=== PATIENT | male | born 1940 | race Caucasian/White ===

== ENCOUNTER → 2024-09-19 12:51 | Outpatient (REF) | payer MEDICARE, OTHER, SELFPAY ==
[2024-09-19 13:43] LABS: % Eosinophils 4.5 % (0-6); % Immature Granulocytes 0.2 % (0-0.5); % Monocytes 16.8 % (1.7-9.3); % Neutrophils 51.5 % (42.2-75.2); Absolute Basophils 0.1 10^3/uL (0-0.2); Absolute Eosinophils 0.2 10^3/uL (0-0.7); Absolute Lymphocytes 1.1 10^3/uL (1.2-3.4); Absolute Monocytes 0.7 10^3/uL (0.1-0.6); Absolute Neutrophils 2.3 10^3/uL (1.4-6.5); Hematocrit 41.1 % (39.0-52.0); Hemoglobin 13.2 g/dL (13.0-18.0); Mean Corp Hgb Conc. 32.1 g/dL (33.0-37.0); Mean Corpuscular Hgb 28.6 pg (27.0-31.0); Nucleated Red Blood Cells % 0 % (-); Platelet Count 208 10^3/uL (130-400); Red Blood Cell Count 4.62 10^6/uL (4.70-6.10); Red Cell Dist. Width 14.6 % (11.5-14.5); White Blood Cell Count 4.4 10^3/uL (4.8-10.8)
[2024-09-19 13:47] LABS: Erythrocyte Sed Rate 15 mm/hour (0-20)
== END ==
LOC: REG 12:51
PROVIDERS: ATTENDING PHYSICIAN Specialist; FAMILY PHYSICIAN Family Medicine
DX: M25.462 Effusion, left knee (principal)
CPT/HCPCS: 36415; 85025; 85652; 86140

== ENCOUNTER → 2024-09-22 09:10 | Outpatient (REF) | payer MEDICARE, OTHER, SELFPAY | LOC: RAD 09:10 | PROVIDERS: ATTENDING PHYSICIAN Specialist; FAMILY PHYSICIAN Family Medicine | DX: Z96.652 Presence of left artificial knee joint (principal) | CPT/HCPCS: 78315; A9503 ==

== ENCOUNTER 2024-10-27 08:20 | Inpatient (IN) | payer MEDICARE, OTHER, SELFPAY ==
[2024-10-06 13:41] VITALS: BMI 32.5
[2024-10-06 14:16] LABS: Hematocrit 40.6 % (39.0-52.0); Hemoglobin 13.2 g/dL (13.0-18.0); Mean Corp Hgb Conc. 32.5 g/dL (33.0-37.0); Platelet Count 141 10^3/uL (130-400); Red Blood Cell Count 4.72 10^6/uL (4.70-6.10); Red Cell Dist. Width 15.4 % (11.5-14.5); White Blood Cell Count 5.1 10^3/uL (4.8-10.8)
[2024-10-06 14:53] LABS: ALT (SGPT) 32 U/L (0-50); AST (SGOT) 29 U/L (17-59); Alkaline Phosphatase 91 U/L (38-126); Blood Urea Nitrogen 26 mg/dl (9-20); Calcium 8.7 mg/dl (8.4-10.2); Carbon Dioxide 25 mmol/L (22-30); Chloride 103 mmol/L (98-107); Estimated Creatinine Clearance 50 ml/min; Glucose 91 mg/dl (70-99); Potassium 3.8 mmol/L (3.5-5.1); Sodium 138 mmol/L (135-145); Total Bilirubin 1.5 mg/dl (0.2-1.3); Total Protein 6.4 g/dl (6.3-8.2); eGFR 50.49
[2024-10-07 08:31] LABS: Glycohemoglobin (HgbA1c) 5.1 % (4.0-5.6)
[2024-10-15 11:35] VITALS: BMI 32.5
--- NOTE | 2024-10-23 13:43 | W.PN.UPDATE ---
Update Note
Progress Note Update
Called patient for f/u:
--sebaceous cyst excised Sunday-no evidence of infection-Keflex d/c today.
--completed my recommendation/Rxs for gout flare which is now resolved.
[2024-10-27] VITALS (17 sets, daily range): BP systolic 112–131; BP diastolic 55–91; PULSE 58; O2SAT 100; BMI 32.5
[2024-10-27] MEDS: BACTROBAN NASAL 1 GRAM NASAL (08:51)
[2024-10-27] MEDS: TYLENOL 650 MG PO ×3 (08:52→19:43)
[2024-10-27] MEDS: CELEBREX 200 MG PO (08:52)
--- NOTE | 2024-10-27 08:58 | W.PN.UPDATE ---
Update Note
Progress Note Update
Mechanical failure-L TKA Revision Dr. Fragoso
DVT ppx ASA + SCD
.
Recent acute gouty flare right foot-s/p brief prednisone taper
with colchicine as well as low-dose allopurinol based on renal
function. Patient will be placed on Decadron post-op.
Recent sebaceous cyst left axillary region excised , possible
follicular in origin, s/p Keflex.
Patient has multiple malignancies including prostate cancer as
well as multiple myeloma and is being actively treated with Revlimid
which is a protein that regulates cell division, activates immune
cells, and alters cytokine and interleukin levels as an immunomodulator.
It is required for delaying progression of his multiple myeloma.
We will include cefadroxil prophylaxis for infection prevention
postoperatively.
[id number] by cath
AV block
--tele-statin,BB,ASA uninterrupted
ALE-intolerant to device-O2 prn hs
CKD 3-avoid nephrotoxic agents
PAST MEDICAL HISTORY:
1. Osteoarthritis status post bilateral total knee arthroplasty
2010.
2. Gout.
3. AV block.
4. Hypertension.
5. Hyperlipidemia.
6. CAD, nonobstructive by cath 2023 medically treated.
7. Prostate cancer greater than 10 years s/p robotic
prostatectomy.
8. Multiple myeloma 2020, active Revlimid.
9. Obstructive sleep apnea intolerant to device.
10. CKD 3.
11. Secondary hyperparathyroidism.
12. Remote occasional pipe use.
13. Insomnia.
[2024-10-27] MEDS: TYLENOL PO (12:00)
--- NOTE | 2024-10-27 12:06 | W.DS.TRANS ---
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
-
Discharge Instructions:
Sleep Apnea Risk Low
Discharge Diagnosis/Procedures L TKA Revision Dr. Fragoso 10/27/24
Diet As tolerated
Activity With Walker
Bathing Restrictions OK to Shower
Other Services PT
Instructions:
Stand-Alone Forms: Total Hip/Knee Replacement D/C
Changes to Home Medications: Yes
Discharge Medications:
DC Medications w/original date entered in [employer]
amlodipine 5 mg tablet 5 mg PO HS 10/10/24
aspirin 81 mg tablet,delayed release 81 mg PO DAILY 10/10/24
atorvastatin 40 mg tablet 40 mg PO HS 10/10/24
hydrochlorothiazide 12.5 mg tablet 12.5 mg PO DAILY 10/10/24
lenalidomide 10 mg capsule (Revlimid) 10 mg PO HS 10/10/24
melatonin 10 mg tablet 20 mg PO HS 10/10/24
metoprolol succinate 50 mg tablet,extended release 24 hr 50 mg PO DAILY 10/10/24
omeprazole 20 mg tablet,delayed release 20 mg PO Q48H 10/10/24
valsartan 320 mg tablet 320 mg PO HS 10/10/24
allopurinol 100 mg tablet 100 mg PO DAILY Gout #14 tabs 10/14/24
cefadroxil 500 mg capsule 500 mg PO BID infection prevention #14 caps 10/14/24
dexamethasone 4 mg tablet 4 mg PO BID inflammation #6 tabs 10/14/24
gabapentin 300 mg capsule 300 mg PO HS sleep/pain #10 caps 10/14/24
mupirocin 2 % topical ointment 1 applic topical BID infection prevention #1 tube 10/14/24
oxycodone 5 mg tablet 5 mg PO Q6H PRN 1 tab moderate pain, 2 tabs severe pain #30 tabs 10/14/24
Saccharomyces boulardii 250 mg capsule (Florastor) 250 mg PO BID #1 cap 10/27/24
acetaminophen 325 mg tablet (Tylenol) 650 mg (2 x 325 mg) PO QID #1 tab 10/27/24
aspirin 325 mg tablet 325 mg PO DAILY blood clot prevention #1 tab 10/27/24
docusate sodium 100 mg capsule (Colace) 100 mg PO BID stool softner #1 cap 10/27/24
magnesium hydroxide 400 mg/5 mL oral suspension (Milk of Magnesia) 30 ml PO HS PRN Constipation #1 mL 10/27/24
sennosides 8.6 mg tablet (Senokot) 17.2 mg (2 x 8.6 mg) PO BID laxative #2 tabs 10/27/24
Home Medication Changes
cefadroxil 500 mg capsule 500 mg PO BID infection prevention #14 caps 10/14/24
dexamethasone 4 mg tablet 4 mg PO BID inflammation #6 tabs 10/14/24
gabapentin 300 mg capsule 300 mg PO HS sleep/pain #10 caps 10/14/24
mupirocin 2 % topical ointment 1 applic topical BID infection prevention #1 tube 10/14/24
oxycodone 5 mg tablet 5 mg PO Q6H PRN 1 tab moderate pain, 2 tabs severe pain #30 tabs 10/14/24
Saccharomyces boulardii 250 mg capsule (Florastor) 250 mg PO BID #1 cap 10/27/24
acetaminophen 325 mg tablet (Tylenol) 650 mg (2 x 325 mg) PO QID #1 tab 10/27/24
aspirin 325 mg tablet 325 mg PO DAILY blood clot prevention #1 tab 10/27/24
docusate sodium 100 mg capsule (Colace) 100 mg PO BID stool softner #1 cap 10/27/24
magnesium hydroxide 400 mg/5 mL oral suspension (Milk of Magnesia) 30 ml PO HS PRN Constipation #1 mL 10/27/24
sennosides 8.6 mg tablet (Senokot) 17.2 mg (2 x 8.6 mg) PO BID laxative #2 tabs 10/27/24
Pending Results: No
[2024-10-27] MEDS: NORMOSOL-R/PLASMALYTE-A 1000 IV (14:39)
[2024-10-27] MEDS: ROXICODONE 5 MG PO (16:05)
[2024-10-27] MEDS: ASPIRIN 325 MG PO (18:05)
[2024-10-27] MEDS: ANCEF 5 IV (18:05)
[2024-10-27] MEDS: COLACE 100 MG PO (19:43)
[2024-10-27] MEDS: ULTRAM 50 MG PO (19:43)
[2024-10-27] MEDS: SENOKOT 17.2 MG PO (19:43)
[2024-10-27] MEDS: DECADRON 6 MG IV (19:43)
[2024-10-27] MEDS: MELATONIN 20 MG PO (21:36)
[2024-10-27] MEDS: LIPITOR 40 MG PO (21:36)
[2024-10-27] MEDS: NEURONTIN 300 MG PO (21:36)
[2024-10-27] MEDS: BACTROBAN 2% OINTMENT 1 APPLIC NASAL (22:19)
[2024-10-28] MEDS: TYLENOL PO ×2 (00:06→11:55)
[2024-10-28] MEDS: ANCEF 5 IV (02:49)
[2024-10-28 03:02] VITALS: BP 120/67
[2024-10-28 03:07] VITALS: BMI 32.5
[2024-10-28] MEDS: TYLENOL 650 MG PO ×2 (04:13→08:20)
[2024-10-28 07:31] VITALS: BP 121/62
[2024-10-28] MEDS: ASPIRIN 325 MG PO (08:19)
[2024-10-28] MEDS: SENOKOT 17.2 MG PO (08:19)
[2024-10-28] MEDS: ULTRAM 50 MG PO (08:19)
[2024-10-28] MEDS: TOPROL XL 25 MG PO (08:19)
[2024-10-28] MEDS: COLACE 100 MG PO (08:19)
[2024-10-28] MEDS: ZYLOPRIM 100 MG PO (08:20)
[2024-10-28] MEDS: DECADRON 6 MG IV (08:20)
[2024-10-28] MEDS: BACTROBAN 2% OINTMENT 1 APPLIC NASAL (08:20)
[2024-10-28 09:58] VITALS: BP 133/72
[2024-10-28 10:13] VITALS: BP 111/67; PULSE 60
--- NOTE | 2024-10-28 11:02 | W.PN.ORTHO ---
Today's Communication / Plan
-
d/c
Assessment
.
Distal Motor Intact: Yes
Dressing:
Clean, dry and intact.
Assessment:
Mechanical failure-L TKA Revision Dr. Fragoso 10/27/24
DVT ppx ASA + SCD
R foot hairline metatarsal fractures-per patient-PCP not certain but
instructed patient to wear boot if swelling occurs-no significant swelling
on exam--f/u PCP or ortho
Recent acute gouty flare right foot-s/p brief prednisone taper
with colchicine as well as low-dose allopurinol based on renal
function. Patient will be placed on Decadron post-op.
Recent sebaceous cyst left axillary region excised , possible
follicular in origin, s/p Keflex--both resolved on exam
Patient has multiple malignancies including prostate cancer as
well as multiple myeloma and is being actively treated with Revlimid
which is a protein that regulates cell division, activates immune
cells, and alters cytokine and interleukin levels as an immunomodulator.
It is required for delaying progression of his multiple myeloma.
We will include cefadroxil prophylaxis for infection prevention
postoperatively.
[id number] by cath
AV block
--stable on tele-statin,BB,ASA uninterrupted
ALE-intolerant to device-O2 prn hs
CKD 3-avoid nephrotoxic agents
PAST MEDICAL HISTORY:
1. Osteoarthritis status post bilateral total knee arthroplasty
2010.
2. Gout.
3. AV block.
4. Hypertension.
5. Hyperlipidemia.
6. CAD, nonobstructive by cath 2023 medically treated.
7. Prostate cancer greater than 10 years s/p robotic
prostatectomy.
8. Multiple myeloma 2020, active Revlimid.
9. Obstructive sleep apnea intolerant to device.
10. CKD 3.
11. Secondary hyperparathyroidism.
12. Remote occasional pipe use.
13. Insomnia.
Plan
.
Surgery / Date: L TKA Revision Dr. Fragoso 10/27/24
DVT Prophylaxis: Aspirin
Activity:
Out of bed.
PT/OT
Discharge Plan: Home w/ Outpatient PT
Subjective
.
.:
Patient resting comfortably.
Vital Signs and Labs
.
Vital Signs and Labs:
Lab Results
10/06/24 13:39
10/06/24 13:39
Temp Pulse Resp BP Pulse Ox
97.3 F 58 20 121/62 97
10/28/24 07:31 10/28/24 07:31 10/28/24 07:31 10/28/24 07:31 10/28/24 07:31
Non-invasive Hgb result: 11.6
Physical Exam
-
HEENT: No pallor, cyanosis, or jaundice. Throat clear.
NECK: Supple. No JVD.
RESPIRATORY: Lungs clear to auscultation.
CVS: S1, S2 normal. RRR.� No murmur, rub or gallop.
ABDOMEN: Soft, non-tender. No distension. BS+/normal.
EXTREMITIES: strength equal, no calf pain with palpation-R foot gouty flare resolved
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
Skin:-Left axillary sebaceous cyst clean dry intact with no evidence of infection
[2024-10-28 12:00] VITALS: BP 95/72
--- NOTE | 2024-10-28 12:42 | CM ---
Met with pt at bedside
Pt reports he lives with his fiance in a story home; 4 steps to enter, 11 steps to 2nd fl
Independent, employed FT, drives
DME - rolling walker, single point cane
SNF/rehab - [facility] in past
HH - [facility] in past
Has ride at discharge
PCP - Dr Sullivan
Pharm - [facility]
For outpatient PT at [facility]. Has appt on 10/30. Has ride. Given Rx for PT
Given IMM
Plan - home with outpatient PT
== END 2024-10-28 14:03 | disposition home or self-care (01) | DRG 467 ==
LOC: 2 SOUTH 08:20
PROVIDERS: ADMITTING PHYSICIAN Specialist; REFERRING PHYSICIAN Internal Medicine Cardiovascular Disease
PROC: 0SPD0JZ Removal of Synthetic Substitute from Left Knee Joint, Open Approach (ICD-10-PCS; 2024-10-27)
PROC: 0SRD0J9 Replacement of Left Knee Joint with Synthetic Substitute, Cemented, Open Approach (ICD-10-PCS; 2024-10-27)
DX: T84.033A Mechanical loosening of internal left knee prosthetic joint, initial encounter (principal); C90.00 Multiple myeloma not having achieved remission; N25.81 Secondary hyperparathyroidism of renal origin; Y79.2 Prosthetic and other implants, materials and accessory orthopedic devices associated with adverse incidents; M10.9 Gout, unspecified; N18.30 Chronic kidney disease, stage 3 unspecified; I12.9 Hypertensive chronic kidney disease with stage 1 through stage 4 chronic kidney disease, or unspecified chronic kidney disease; E78.5 Hyperlipidemia, unspecified; I25.10 Atherosclerotic heart disease of native coronary artery without angina pectoris; G47.33 Obstructive sleep apnea (adult) (pediatric); G47.00 Insomnia, unspecified; Z68.32 Body mass index [BMI] 32.0-32.9, adult; E66.9 Obesity, unspecified; L72.3 Sebaceous cyst; C61 Malignant neoplasm of prostate; I44.30 Unspecified atrioventricular block; S92.301A Fracture of unspecified metatarsal bone(s), right foot, initial encounter for closed fracture; X58.XXXA Exposure to other specified factors, initial encounter; Z96.653 Presence of artificial knee joint, bilateral
CPT/HCPCS: 36415; 73560; 80053; 83036; 85027; 86850; 86900; 86901; 87070; 97110; 97116; 97162; 97166; 97530; C1713; C1762; C1776